=== PATIENT | female | born 1935 | race Caucasian/White ===

== ENCOUNTER 2017-03-07 14:37 | Inpatient (IN) | payer OTHER ==
[~2017-03-07] VITALS: Ht 154.9 cm; Wt 77.1 kg
--- NOTE | 2017-03-07 14:57 | NUR ---
PT BACK TO LOBBY. SPEAKING FULL CLEAR SENTENCES. NO DISTRESS.
--- NOTE | 2017-03-07 16:27 | NUR ---
PT IS A 81 YEAR OLD FEMALE, PRESENTS TO ED WITH SHORTNESS OF BREATH X3 DAYS. PT LUNG SOUNDS HAVE WHEEZE BILATERALLY. PT DENIES ANY N/V/D/C. PT HAS BILATERAL EXTREMITY PITTING EDEMA NOTED. PT SPEECH IS CLEAR AND APPROPRIATE. PT A/O X4, PT HOOKED TO FULL TREATING MACHINE OPERATOR. MSE PERFORMED BY DR SPENCER.
[2017-03-07 16:50] LABS: CALCIUM 8.6 mg/dL (8.5-10.1); CARBON DIOXIDE 33.9 mmol/L (21-32); CHLORIDE SERUM 97 mmol/L (98-107); CREATININE SERUM 1.6 mg/dL (0.6-1.0); GLUCOSE SERUM 108 mg/dL (74-106); POTASSIUM SERUM 3.2 mmol/L (3.5-5.1); SODIUM SERUM 139 mmol/L (136-145)
[2017-03-07 16:56] LABS: PLATELET COUNT 139 x10^3mcL (130-400)
[2017-03-07] MEDS ORDERED: LASIX40 MG PO (16:56)
[2017-03-07] MEDS ORDERED: TOPROL XL100 MG PO (16:56)
[2017-03-07] MEDS ORDERED: MASON NATURAL1000 IU PO (16:56)
[2017-03-07] MEDS ORDERED: COUMADIN2.5 MG PO (16:56)
[2017-03-07] MEDS ORDERED: LOSARTAN POTASS25 M1 PO (16:56)
[2017-03-07] MEDS ORDERED: XANAX0.25 MG PO (16:57)
[2017-03-07 16:59] LABS: BASOPHIL % 2.4 % (0-2); RED CELL DISTRIBUTION WIDTH 15.2 % (11.5-14.5)
[2017-03-07 17:01] LABS: CK-MB 0.5 ng/mL (0-3.6)
[2017-03-07 17:02] LABS: ALBUMIN 3.4 g/dL (3.4-5.0); ALKALINE PHOSPHATASE 65 U/L (46-116); ALT/SGPT 20 U/L (14-59); AST/SGOT 19 U/L (15-37); C REACTIVE PROTEIN 1.4 mg/dL (<=0.9); TOTAL PROTEIN, SERUM 6.6 g/dL (6.4-8.2)
--- NOTE | 2017-03-07 17:06 | NUR ---
SPO2 PRE TX 89%. RAN ABG AND REVIEWED WITH DR. SPENCER WHO STATED TO PLACE PT ON 2L VIA N/C PO2 53.5
[2017-03-07 17:13] LABS: T3 TOTAL 0.64 ng/mL
[2017-03-07 17:30] LABS: FREE T4 1.41 ng/dL (0.76-1.46); FREE THYROXINE INDEX 3.5 ug/dL (1.4-4.5); T4(THYROXINE) 8.7 ug/dL (4.7-13.3)
[2017-03-07 18:12] LABS: ERYTHROCYTE SED RATE 4 mm/hr (0-30)
[2017-03-07 19:24] LABS: MAGNESIUM 1.7 mg/dL (1.8-2.4)
[2017-03-07 19:25] LABS: CHOLESTEROL/HDL RATIO 2.6
--- NOTE | 2017-03-07 19:30 | NUR ---
REPORT CALLED TO TIA SORIA, SHE WILL ASSUME CARE PRIMARY RN POST TRASFNER.
[2017-03-07 19:50] LABS: UA SPECIFIC GRAVITY <=1.005 (1.005-1.035); microscopic required? YES; urine erythrocyte TRACE (NEGATIVE)
[2017-03-07 19:57] VITALS: BP 145/67
--- NOTE | 2017-03-07 20:01 | NUR ---
RECEIVED PT FROM ED VIA GREGORIO. ORIENTED PT TO ROOM AND SURROUNDINGS. IV NOTED TO RAC PATENT AND INTACT. TELE 25 PLACED ON PT READING AFIB. INSTRUCTED PT ON THE USE OF CALL LIGHT FOR ASSISTANCE. ENDORSED PT TO PRIMARY NURSE DUKE
--- NOTE | 2017-03-07 20:10 | NUR ---
REC'D REPORT WILL CONTINUE CARE.
[2017-03-07 20:15] LABS: AMPHETAMINE QUAL UR NONE DETECTED (NEG <=1000)
[2017-03-07 21:26] VITALS: BP 145/67
--- NOTE | 2017-03-08 03:12 | NUR ---
ROUNDS MADE, PT IS SLEEPING COMFORTABLY. NO DISTRESS NOTED. WILL CONT TO MONITOR.
[2017-03-08 05:49] VITALS: BP 138/96
--- NOTE | 2017-03-08 06:07 | NUR ---
PT SLEPT COMFORTABLY THROUGHOUT THE NIGHT. NO RESP DISTRESS NOTED. ALL NEEDS MET AND ATTENDED TO. IV ACCESS PATENT AND HEPLOCK. WILL ENDORSE ALL CARE TO ONCOMING NURSE.
[2017-03-08 06:42] LABS: CALCIUM 8.4 mg/dL (8.5-10.1); CHLORIDE SERUM 102 mmol/L (98-107); CREATININE SERUM 1.5 mg/dL (0.6-1.0); GLUCOSE SERUM 166 mg/dL (74-106); MAGNESIUM 2.3 mg/dL (1.8-2.4); POTASSIUM SERUM 4.2 mmol/L (3.5-5.1); SODIUM SERUM 141 mmol/L (136-145)
--- NOTE | 2017-03-08 07:10 | NUR ---
RESTING IN BED, AAOX3, ABLE TO VERBALIZE NEED WITH CLEAR SPEECH, ON OXYGEN VIA NC AT 2L/MIN, SYM CHEST EXPANSION, FINE CRACKLES NOTED, ON TELE #25 A-FIB ON MONITOR, DENIES HEART RELATED PAIN OR DISCOMFORT AT THIS TIME, BLE EDEMA +2, COUMADIN ORDER ON HOLD, CURRENT INR IS 4.8, REORIENTED TO ROOM AND CALL LIGHT WILL CONTINUE TO PROVIDE CARE.
[2017-03-08 08:13] LABS: BASOPHIL % 0.3 % (0-2)
[2017-03-08 08:29] LABS: PLATELET COUNT 124 x10^3mcL (130-400); RED CELL DISTRIBUTION WIDTH 16.2 % (11.5-14.5)
--- NOTE | 2017-03-08 08:53 | NUR ---
ROUNDS WITH DR PETERSON AND MEDICAL TEAM, UPDATED PT ON CURRENT POC.
--- NOTE | 2017-03-08 09:39 | NUR ---
ABLE TO TAKE ALL PO MEDS WITHOUT GI DISTRESS OR SWALLOW DELAY, CALL LIGHT WITHIN REACH, WILL CONTINUE TO PROVIDE CARE.
[2017-03-08 09:41] VITALS: BP 133/67
[2017-03-08] MEDS ORDERED: LEVAQUIN750 MG PO (12:02)
[2017-03-08] MEDS ORDERED: CLINDAMYCIN HC300 MG PO (12:03)
[2017-03-08] MEDS ORDERED: BD LACTINEX1.4 MG PO (12:03)
[2017-03-08] MEDS ORDERED: COUMADIN2 MG PO (12:04)
[2017-03-08 13:37] VITALS: BP 135/85
[2017-03-08 15:38] VITALS: BP 135/85
[2017-03-08 17:34] VITALS: BP 134/88
--- NOTE | 2017-03-08 18:34 | NUR ---
PATIENT DISCHARGED HOME, REVIEWED DISCHARGE INSTRUCTIONS WITH PATIENT, INCLUDING FOLLOW UP APPOINTMENT WITH PCP, PATIENT VERBALIZED UNDERSTANDING OF DISCHARGE INSTRUCTIONS. IV D/C'D, CATH TIP INTACT, NO BLEEDING OR PHLEBITIS NOTED, COVERED WITH BANDAID. TELE MONITOR REMOVED. PATIENT WILL BE ASSISTED DOWNSTAIRS VIA WHEELCHAIR BY BEAD FORMING MACHINE SET UP OPERATOR.
--- NOTE | 2017-03-08 18:37 | NUR ---
REVIEWED DISCHARGE INSTRUCTIONS WITH PATIENT AND DAUGHTER, INCLUDING FOLLOW UP APPOINTMENT WITH PCP, PATIENT AND DAUGHTER VERBALIZED UNDERSTANDING OF DISCHARGE INSTRUCTIONS. IV D/C'D, CATH TIP INTACT, NO BLEEDING OR PHLEBITIS NOTED, COVERED WITH BANDAID. TELE MONITOR REMOVED.
[2017-03-15 17:20] VITALS: Ht 154.9 cm; Wt 77.1 kg
== END 2017-03-08 18:38 | disposition home or self-care (01) | DRG 177 ==
LOC: ED 14:37 → DU 18:49
PROVIDERS: Specialist; ADMIT Family Medicine
DX: J69.0 Pneumonitis due to inhalation of food and vomit (principal); I50.43 Acute on chronic combined systolic (congestive) and diastolic (congestive) heart failure; N17.0 Acute kidney failure with tubular necrosis; J96.00 Acute respiratory failure, unspecified whether with hypoxia or hypercapnia; E44.1 Mild protein-calorie malnutrition; K80.20 Calculus of gallbladder without cholecystitis without obstruction; I48.91 Unspecified atrial fibrillation; E87.6 Hypokalemia; E83.42 Hypomagnesemia; K21.9 Gastro-esophageal reflux disease without esophagitis; E87.8 Other disorders of electrolyte and fluid balance, not elsewhere classified; E66.9 Obesity, unspecified; Z68.32 Body mass index [BMI] 32.0-32.9, adult; Z86.711 Personal history of pulmonary embolism; Z79.01 Long term (current) use of anticoagulants
CPT/HCPCS: 36600; 83880; 84439; 94150; J1940; J1956; J2930; J3475; J3490; J7040; J7613; J7620; J7644; Q0092; Q9967

== ENCOUNTER 2017-03-10 01:57 | Inpatient (IN) | payer OTHER ==
[2017-03-10] VITALS (7 sets, daily range): BP systolic 12–139; BP diastolic 71–93; Ht 160 cm; Wt 80.5 kg
[~2017-03-10] VITALS: Ht 160 cm; Wt 80.5 kg
[~2017-03-10 01:57] MED LIST: BD LACTINEX1.4 MG PO; CLINDAMYCIN HC300 MG PO; COUMADIN2 MG PO; COUMADIN2.5 MG PO; LASIX40 MG PO; LEVAQUIN750 MG PO; LOSARTAN POTASS25 M1 PO; MASON NATURAL1000 IU PO; TOPROL XL100 MG PO; XANAX0.25 MG PO
[2017-03-10 02:50] LABS: CALCIUM 8.5 mg/dL (8.5-10.1); CARBON DIOXIDE 35.7 mmol/L (21-32); CHLORIDE SERUM 100 mmol/L (98-107); CREATININE SERUM 1.5 mg/dL (0.6-1.0); GLUCOSE SERUM 110 mg/dL (74-106); POTASSIUM SERUM 3.6 mmol/L (3.5-5.1); SODIUM SERUM 140 mmol/L (136-145)
[2017-03-10 02:55] LABS: ALKALINE PHOSPHATASE 60 U/L (46-116); ALT/SGPT 19 U/L (14-59); AST/SGOT 19 U/L (15-37); BILIRUBIN TOTAL 1.12 mg/dL (0.20-1.00)
[2017-03-10 02:58] LABS: ALBUMIN 3.1 g/dL (3.4-5.0)
[2017-03-10 03:24] LABS: BASOPHIL % 0.2 % (0-2); PLATELET COUNT 152 x10^3mcL (130-400)
[2017-03-10 03:28] LABS: RED CELL DISTRIBUTION WIDTH 16.5 % (11.5-14.5)
[2017-03-10 11:48] LABS: MAGNESIUM 2.3 mg/dL (1.8-2.4); PHOSPHOROUS 4.2 mg/dL (2.5-4.9)
[2017-03-10 11:53] LABS: CHOLESTEROL/HDL RATIO 2.7
[2017-03-10 12:16] LABS: T3 TOTAL 0.44 ng/mL
[2017-03-10 13:00] LABS: FREE T4 1.21 ng/dL (0.76-1.46); FREE THYROXINE INDEX 2.4 ug/dL (1.4-4.5)
[2017-03-10] MEDS ORDERED: METOPROLOL TAR100 MG PO (17:08)
[2017-03-11 06:05] VITALS: BP 108/84
[2017-03-11 08:20] LABS: BASOPHIL % 0.1 % (0-2); PLATELET COUNT 143 x10^3mcL (130-400)
[2017-03-11 08:29] LABS: CALCIUM 8.7 mg/dL (8.5-10.1); CARBON DIOXIDE 34.7 mmol/L (21-32); CHLORIDE SERUM 103 mmol/L (98-107); CREATININE SERUM 1.4 mg/dL (0.6-1.0); GLUCOSE SERUM 105 mg/dL (74-106); POTASSIUM SERUM 4.4 mmol/L (3.5-5.1); SODIUM SERUM 143 mmol/L (136-145)
[2017-03-11 08:41] LABS: RED CELL DISTRIBUTION WIDTH 16.7 % (11.5-14.5)
[2017-03-11 09:08] VITALS: BP 113/71
[2017-03-11 11:55] VITALS: BP 111/67
[2017-03-11 16:03] VITALS: BP 107/67
[2017-03-11 21:24] VITALS: BP 122/74
[2017-03-12 06:41] VITALS: BP 114/89
[2017-03-12 09:53] VITALS: BP 110/71
[2017-03-12 10:12] LABS: BASOPHIL % 0.1 % (0-2); PLATELET COUNT 152 x10^3mcL (130-400)
[2017-03-12 10:23] LABS: CALCIUM 7.9 mg/dL (8.5-10.1); CARBON DIOXIDE 37.8 mmol/L (21-32); CHLORIDE SERUM 102 mmol/L (98-107); CREATININE SERUM 1.4 mg/dL (0.6-1.0); GLUCOSE SERUM 91 mg/dL (74-106); POTASSIUM SERUM 3.9 mmol/L (3.5-5.1); RED CELL DISTRIBUTION WIDTH 16.8 % (11.5-14.5); SODIUM SERUM 144 mmol/L (136-145)
[2017-03-12 17:05] VITALS: BP 131/71
[2017-03-12 21:39] VITALS: BP 120/75
[2017-03-13 05:26] VITALS: BP 118/78
[2017-03-13 07:33] LABS: BASOPHIL % 0.3 % (0-2); PLATELET COUNT 143 x10^3mcL (130-400)
[2017-03-13 07:37] LABS: RED CELL DISTRIBUTION WIDTH 16.6 % (11.5-14.5)
[2017-03-13 07:46] LABS: CALCIUM 8.1 mg/dL (8.5-10.1); CARBON DIOXIDE 36.8 mmol/L (21-32); CHLORIDE SERUM 102 mmol/L (98-107); CREATININE SERUM 1.4 mg/dL (0.6-1.0); GLUCOSE SERUM 83 mg/dL (74-106); SODIUM SERUM 144 mmol/L (136-145)
[2017-03-13 09:09] VITALS: BP 98/61
[2017-03-13] MEDS ORDERED: L40 PO (14:17)
[2017-03-13 14:37] VITALS: BP 98/61
[2017-03-13 17:37] VITALS: BP 118/73
[2017-03-13 21:31] VITALS: BP 111/63
[2017-03-14 06:13] VITALS: BP 113/80
[2017-03-14 09:14] VITALS: BP 126/78
[2017-03-14] MEDS ORDERED: COU5 PO (17:30)
[2017-03-14 17:44] VITALS: BP 123/85
[2017-03-14 20:20] VITALS: BP 128/87
[2017-03-14 20:25] VITALS: BP 130/94
[2017-03-14 21:11] VITALS: BP 132/86
[2017-03-15 06:11] VITALS: BP 120/64
[2017-03-15 07:26] LABS: CALCIUM 8.6 mg/dL (8.5-10.1); CARBON DIOXIDE 38.1 mmol/L (21-32); CHLORIDE SERUM 100 mmol/L (98-107); CREATININE SERUM 1.3 mg/dL (0.6-1.0); GLUCOSE SERUM 141 mg/dL (74-106); POTASSIUM SERUM 4.4 mmol/L (3.5-5.1); SODIUM SERUM 140 mmol/L (136-145)
[2017-03-15 07:34] LABS: PLATELET COUNT 167 x10^3mcL (130-400)
[2017-03-15 07:40] LABS: RED CELL DISTRIBUTION WIDTH 15.9 % (11.5-14.5)
[2017-03-15 07:41] LABS: BASOPHIL % 0 % (0-2)
[2017-03-15 09:00] VITALS: BP 127/93
[2017-03-15 10:20] VITALS: BP 127/93
[2017-03-15] MEDS ORDERED: MEDDP PO (11:50)
[2017-03-15] MEDS ORDERED: LEVAQUIN750 MG PO (11:52)
[2017-03-15 13:00] VITALS: BP 130/85
== END 2017-03-15 16:00 | disposition home health service (06) | DRG 177 ==
LOC: ED 01:57 → DU 05:31 → MU 05:31 → DU 06:23 → MU 03-11 06:45
PROVIDERS: Emergency Medicine; Family Medicine; Family Medicine Sports Medicine
DX: J69.0 Pneumonitis due to inhalation of food and vomit (principal); N17.0 Acute kidney failure with tubular necrosis; I50.43 Acute on chronic combined systolic (congestive) and diastolic (congestive) heart failure; J96.00 Acute respiratory failure, unspecified whether with hypoxia or hypercapnia; E44.0 Moderate protein-calorie malnutrition; J44.9 Chronic obstructive pulmonary disease, unspecified; I48.91 Unspecified atrial fibrillation; K80.20 Calculus of gallbladder without cholecystitis without obstruction; Z68.34 Body mass index [BMI] 34.0-34.9, adult; Z86.711 Personal history of pulmonary embolism; Z79.01 Long term (current) use of anticoagulants
CPT/HCPCS: 36600; 83880; 84439; 94150; 97110-GP; 97116-GP; 97530-GP; J0456; J1956; J2920; J2930; J3475; J3490; J7030; J7050; J7613; J7620; J7633; J7644; Q0092

== ENCOUNTER 2017-05-31 08:58 | Observation (INO) | payer OTHER ==
[~2017-05-31] VITALS: Ht 162.6 cm; Wt 85.4 kg
[~2017-05-31 08:58] MED LIST changes: +COU5 PO; +L40 PO; +MEDDP PO; +METOPROLOL TAR100 MG PO
[2017-05-31 08:59] VITALS: Ht 162.6 cm; Wt 85.4 kg
[2017-05-31 10:25] LABS: BASOPHIL % 0.5 % (0-2); PLATELET COUNT 136 x10^3mcL (130-400)
[2017-05-31 10:27] LABS: RED CELL DISTRIBUTION WIDTH 16.8 % (11.5-14.5)
[2017-05-31 10:38] LABS: CALCIUM 9.2 mg/dL (8.5-10.1); CARBON DIOXIDE 37.7 mmol/L (21-32); CHLORIDE SERUM 101 mmol/L (98-107); CREATININE SERUM 1.2 mg/dL (0.6-1.0); GLUCOSE SERUM 100 mg/dL (74-106); POTASSIUM SERUM 3.3 mmol/L (3.5-5.1); SODIUM SERUM 144 mmol/L (136-145)
[2017-05-31 10:43] LABS: ALBUMIN 3.5 g/dL (3.4-5.0); ALKALINE PHOSPHATASE 66 U/L (46-116); ALT/SGPT 15 U/L (14-59); AMYLASE 39 U/L (25-115); AST/SGOT 17 U/L (15-37); BILIRUBIN TOTAL 1.3 mg/dL (0.20-1.00); LIPASE 82 IU/L (73-393); TOTAL PROTEIN, SERUM 6.3 g/dL (6.4-8.2)
[2017-05-31 11:12] LABS: UA SPECIFIC GRAVITY 1.025 (1.005-1.035); microscopic required? YES; urine erythrocyte NEGATIVE (NEGATIVE)
[2017-05-31] MEDS ORDERED: COUMADIN2 MG PO (14:02)
[2017-05-31 15:06] LABS: T3 TOTAL 1.01 ng/mL
[2017-05-31 15:42] LABS: MAGNESIUM 1.9 mg/dL (1.8-2.4); PHOSPHOROUS 4.5 mg/dL (2.5-4.9)
[2017-05-31 15:52] LABS: FREE T4 1.22 ng/dL (0.76-1.46); FREE THYROXINE INDEX 2.6 ug/dL (1.4-4.5); T4(THYROXINE) 7.1 ug/dL (4.7-13.3)
[2017-05-31 17:53] VITALS: BP 129/85
[2017-05-31 20:00] VITALS: BP 136/91
[2017-06-01] VITALS: BP 115/76
[2017-06-01 04:00] VITALS: BP 114/76
[2017-06-01 05:49] LABS: CALCIUM 8.7 mg/dL (8.5-10.1); CHLORIDE SERUM 103 mmol/L (98-107); CREATININE SERUM 1.3 mg/dL (0.6-1.0); GLUCOSE SERUM 120 mg/dL (74-106); POTASSIUM SERUM 4.2 mmol/L (3.5-5.1); SODIUM SERUM 145 mmol/L (136-145)
[2017-06-01 05:58] LABS: PLATELET COUNT 137 x10^3mcL (130-400)
[2017-06-01 06:00] LABS: BASOPHIL % 0 % (0-2); RED CELL DISTRIBUTION WIDTH 16.7 % (11.5-14.5)
[2017-06-01 07:47] VITALS: BP 127/70
[2017-06-01 11:26] VITALS: BP 108/67
[2017-06-01 16:54] VITALS: BP 118/69
[2017-06-01 20:52] VITALS: BP 130/68
[2017-06-02 05:38] VITALS: BP 121/72
[2017-06-02 07:35] LABS: BASOPHIL % 0.4 % (0-2); CALCIUM 8.3 mg/dL (8.5-10.1); CARBON DIOXIDE 34.3 mmol/L (21-32); CHLORIDE SERUM 109 mmol/L (98-107); CREATININE SERUM 1.2 mg/dL (0.6-1.0); GLUCOSE SERUM 94 mg/dL (74-106); MAGNESIUM 1.7 mg/dL (1.8-2.4); PHOSPHOROUS 3.2 mg/dL (2.5-4.9); PLATELET COUNT 131 x10^3mcL (130-400); POTASSIUM SERUM 3.6 mmol/L (3.5-5.1); RED CELL DISTRIBUTION WIDTH 17.3 % (11.5-14.5); SODIUM SERUM 151 mmol/L (136-145)
[2017-06-02 10:01] VITALS: BP 108/73
[2017-06-02 10:52] VITALS: BP 108/73
[2017-06-02] MEDS ORDERED: DILTIAZEM30 M1 PO (12:34)
[2017-06-02] MEDS ORDERED: L20 PO (12:35)
[2017-06-02 13:53] VITALS: BP 107/50
== END 2017-06-02 18:04 | disposition home or self-care (01) | DRG 353 ==
LOC: ED 08:58 → DU 12:15 → IC 14:12 → DU 06-01 15:10
PROVIDERS: Emergency Medicine; Family Medicine; Internal Medicine Cardiovascular Disease; Student in an Organized Health Care Education/Training Program; Surgery
PROC: 0WUF0JZ Supplement Abdominal Wall with Synthetic Substitute, Open Approach (ICD-10-PCS; principal; 2017-05-31 13:30)
DX: K42.0 Umbilical hernia with obstruction, without gangrene (principal); I50.43 Acute on chronic combined systolic (congestive) and diastolic (congestive) heart failure; N17.0 Acute kidney failure with tubular necrosis; E87.0 Hyperosmolality and hypernatremia; I11.0 Hypertensive heart disease with heart failure; I48.2 Chronic atrial fibrillation; E83.42 Hypomagnesemia; N28.1 Cyst of kidney, acquired; K80.20 Calculus of gallbladder without cholecystitis without obstruction; E66.3 Overweight; Z68.32 Body mass index [BMI] 32.0-32.9, adult; Z79.01 Long term (current) use of anticoagulants; Z99.81 Dependence on supplemental oxygen; Z86.711 Personal history of pulmonary embolism
CPT/HCPCS: 83880; 84439; 94150; 97110-GP; C1781; G0378; J0330; J1644; J2250; J2270; J2405; J2704; J2710; J3010; J3490; J7030; J7120; Q0092; Q0162

== ENCOUNTER 2017-07-08 11:55 | Inpatient (IN) | payer OTHER ==
[~2017-07-08] VITALS: Ht 157.5 cm; Wt 87.0 kg
[~2017-07-08 11:55] MED LIST changes: +DILTIAZEM30 M1 PO; +L20 PO
[2017-07-08 12:37] LABS: BASOPHIL % 0.4 % (0-2)
[2017-07-08 12:38] LABS: PLATELET COUNT 120 x10^3mcL (130-400); RED CELL DISTRIBUTION WIDTH 15.6 % (11.5-14.5)
[2017-07-08 12:59] LABS: ALBUMIN 3.4 g/dL (3.4-5.0); ALKALINE PHOSPHATASE 78 U/L (46-116); ALT/SGPT 17 U/L (14-59); AST/SGOT 15 U/L (15-37); BILIRUBIN TOTAL 1.2 mg/dL (0.20-1.00); CALCIUM 8.5 mg/dL (8.5-10.1); CHLORIDE SERUM 95 mmol/L (98-107); CREATININE SERUM 1.1 mg/dL (0.6-1.0); GLUCOSE SERUM 117 mg/dL (74-106); POTASSIUM SERUM 3.6 mmol/L (3.5-5.1); SODIUM SERUM 139 mmol/L (136-145); TOTAL PROTEIN, SERUM 6.4 g/dL (6.4-8.2)
[2017-07-08 13:04] LABS: CK-MB < 0.5 ng/mL (0-3.6); CREATINE KINASE 24 U/L (26-192)
[2017-07-08 13:05] LABS: CARBON DIOXIDE 42.9 mmol/L (21-32)
[2017-07-08 15:31] LABS: CHOLESTEROL/HDL RATIO 2.3; MAGNESIUM 2.1 mg/dL (1.8-2.4); PHOSPHOROUS 4.5 mg/dL (2.5-4.9)
[2017-07-08 15:35] LABS: T3 TOTAL 0.77 ng/mL
[2017-07-08 15:41] LABS: FREE T4 1.01 ng/dL (0.76-1.46); T4(THYROXINE) 5.8 ug/dL (4.7-13.3)
[2017-07-08 16:02] VITALS: BP 94/57
[2017-07-08 16:17] LABS: UA SPECIFIC GRAVITY 1.025 (1.005-1.035); microscopic required? YES; urine erythrocyte NEGATIVE (NEGATIVE)
[2017-07-08 16:25] VITALS: BP 94/57
[2017-07-08 16:26] LABS: AMPHETAMINE QUAL UR NONE DETECTED (NEG <=1000)
[2017-07-08 20:48] VITALS: BP 103/60
[2017-07-09] VITALS (16 sets, daily range): BP systolic 73–193; BP diastolic 42–126
[2017-07-09 05:43] LABS: BASOPHIL % 0 % (0-2); PLATELET COUNT 97 x10^3mcL (130-400); RED CELL DISTRIBUTION WIDTH 15.4 % (11.5-14.5)
[2017-07-09 05:54] LABS: CHLORIDE SERUM 97 mmol/L (98-107); CREATININE SERUM 1.2 mg/dL (0.6-1.0); GLUCOSE SERUM 117 mg/dL (74-106); MAGNESIUM 1.7 mg/dL (1.8-2.4); PHOSPHOROUS 2.8 mg/dL (2.5-4.9); SODIUM SERUM 141 mmol/L (136-145)
[2017-07-09 05:55] LABS: CARBON DIOXIDE 43.1 mmol/L (21-32); POTASSIUM SERUM 2.9 mmol/L (3.5-5.1)
[2017-07-09 21:51] LABS: CARBON DIOXIDE 34.3 mmol/L (21-32); CHLORIDE SERUM 100 mmol/L (98-107); CREATININE SERUM 1.4 mg/dL (0.6-1.0); GLUCOSE SERUM 166 mg/dL (74-106); POTASSIUM SERUM 3.1 mmol/L (3.5-5.1); SODIUM SERUM 139 mmol/L (136-145)
[2017-07-10] VITALS (19 sets, daily range): BP systolic 91–116; BP diastolic 55–87
[2017-07-10 05:53] LABS: BASOPHIL % 0 % (0-2); PLATELET COUNT 100 x10^3mcL (130-400); RED CELL DISTRIBUTION WIDTH 15.4 % (11.5-14.5)
[2017-07-10 06:07] LABS: CALCIUM 8.3 mg/dL (8.5-10.1); CARBON DIOXIDE 36.3 mmol/L (21-32); CHLORIDE SERUM 100 mmol/L (98-107); CREATININE SERUM 1.4 mg/dL (0.6-1.0); GLUCOSE SERUM 156 mg/dL (74-106); MAGNESIUM 2.5 mg/dL (1.8-2.4); PHOSPHOROUS 2.7 mg/dL (2.5-4.9); POTASSIUM SERUM 3.4 mmol/L (3.5-5.1); SODIUM SERUM 141 mmol/L (136-145)
[2017-07-10 07:32] LABS: BILIRUBIN DIRECT 0.32 mg/dL (0.0-0.2); BILIRUBIN TOTAL 0.95 mg/dL (0.20-1.00)
[2017-07-10 08:14] LABS: ALBUMIN 2.6 g/dL (3.4-5.0); TOTAL PROTEIN, SERUM 5.4 g/dL (6.4-8.2)
[2017-07-11] VITALS (12 sets, daily range): BP systolic 93–127; BP diastolic 49–89
[2017-07-11 05:27] LABS: BASOPHIL % 0 % (0-2); PLATELET COUNT 119 x10^3mcL (130-400); RED CELL DISTRIBUTION WIDTH 15.6 % (11.5-14.5)
[2017-07-11 05:37] LABS: CALCIUM 7.9 mg/dL (8.5-10.1); CARBON DIOXIDE 33.2 mmol/L (21-32); CHLORIDE SERUM 106 mmol/L (98-107); CREATININE SERUM 1.3 mg/dL (0.6-1.0); GLUCOSE SERUM 165 mg/dL (74-106); MAGNESIUM 2.3 mg/dL (1.8-2.4); SODIUM SERUM 144 mmol/L (136-145)
[2017-07-12 00:11] VITALS: BP 129/72
[2017-07-12 03:51] VITALS: BP 119/77
[2017-07-12 05:05] LABS: BASOPHIL % 0.1 % (0-2); PLATELET COUNT 134 x10^3mcL (130-400)
[2017-07-12 05:11] LABS: CALCIUM 7.9 mg/dL (8.5-10.1); CHLORIDE SERUM 107 mmol/L (98-107); CREATININE SERUM 1.2 mg/dL (0.6-1.0); GLUCOSE SERUM 94 mg/dL (74-106); MAGNESIUM 2.2 mg/dL (1.8-2.4); PHOSPHOROUS 4.2 mg/dL (2.5-4.9); POTASSIUM SERUM 3.6 mmol/L (3.5-5.1); SODIUM SERUM 147 mmol/L (136-145)
[2017-07-12 05:15] LABS: RED CELL DISTRIBUTION WIDTH 15.8 % (11.5-14.5)
[2017-07-12 07:45] VITALS: BP 119/83
[2017-07-12 11:34] VITALS: BP 114/70
[2017-07-12 13:46] LABS: microscopic required? YES; urine erythrocyte 3+ (NEGATIVE)
[2017-07-12 15:35] VITALS: BP 112/66
[2017-07-12 21:36] VITALS: BP 115/65
[2017-07-13 05:33] VITALS: BP 146/92
[2017-07-13 08:42] LABS: CALCIUM 8.1 mg/dL (8.5-10.1); CHLORIDE SERUM 105 mmol/L (98-107); CREATININE SERUM 1.1 mg/dL (0.6-1.0); GLUCOSE SERUM 86 mg/dL (74-106); MAGNESIUM 2.1 mg/dL (1.8-2.4); PHOSPHOROUS 4.1 mg/dL (2.5-4.9); POTASSIUM SERUM 3.5 mmol/L (3.5-5.1); SODIUM SERUM 146 mmol/L (136-145)
[2017-07-13 08:44] LABS: CARBON DIOXIDE 40.9 mmol/L (21-32)
[2017-07-13 08:45] LABS: BASOPHIL % 0.1 % (0-2); PLATELET COUNT 131 x10^3mcL (130-400); RED CELL DISTRIBUTION WIDTH 15.7 % (11.5-14.5)
[2017-07-13 09:36] VITALS: BP 148/86
[2017-07-13 11:09] VITALS: Ht 157.5 cm; Wt 87.0 kg
[2017-07-13 13:29] VITALS: BP 121/80
[2017-07-13 16:53] VITALS: BP 137/77
[2017-07-13 19:20] VITALS: BP 140/71
[2017-07-14 05:46] VITALS: BP 137/76
[2017-07-14 07:46] LABS: BASOPHIL % 0.4 % (0-2); PLATELET COUNT 137 x10^3mcL (130-400)
[2017-07-14 07:48] LABS: CARBON DIOXIDE 39.5 mmol/L (21-32); CHLORIDE SERUM 103 mmol/L (98-107); CREATININE SERUM 0.9 mg/dL (0.6-1.0); GLUCOSE SERUM 87 mg/dL (74-106); MAGNESIUM 2.1 mg/dL (1.8-2.4); PHOSPHOROUS 3.7 mg/dL (2.5-4.9); POTASSIUM SERUM 3.6 mmol/L (3.5-5.1); SODIUM SERUM 145 mmol/L (136-145)
[2017-07-14 08:14] LABS: RED CELL DISTRIBUTION WIDTH 15.5 % (11.5-14.5)
[2017-07-14 09:40] VITALS: BP 134/80
[2017-07-14 14:59] VITALS: BP 139/71
[2017-07-14 17:54] VITALS: BP 131/63
[2017-07-14 20:35] VITALS: BP 121/62
[2017-07-15 05:46] VITALS: BP 127/70
[2017-07-15 05:57] LABS: BASOPHIL % 0.4 % (0-2); PLATELET COUNT 151 x10^3mcL (130-400)
[2017-07-15 06:04] LABS: CALCIUM 7.9 mg/dL (8.5-10.1); CHLORIDE SERUM 104 mmol/L (98-107); CREATININE SERUM 1.1 mg/dL (0.6-1.0); GLUCOSE SERUM 96 mg/dL (74-106); POTASSIUM SERUM 3.7 mmol/L (3.5-5.1); SODIUM SERUM 146 mmol/L (136-145)
[2017-07-15 06:48] LABS: RED CELL DISTRIBUTION WIDTH 15.4 % (11.5-14.5)
[2017-07-15 08:56] VITALS: BP 141/70
[2017-07-15] MEDS ORDERED: CARCD180 PO (11:25)
[2017-07-15] MEDS ORDERED: L40 PO (11:25)
[2017-07-15] MEDS ORDERED: METOPROLOL TART25 M1 NG (11:26)
[2017-07-15] MEDS ORDERED: VENTOLIN H0.09 MG/A1 INH (11:27)
[2017-07-15] MEDS ORDERED: LEVAQUIN750 MG PO (11:27)
[2017-07-15] MEDS ORDERED: BD LACTINEX1.4 MG PO (11:27)
[2017-07-15] MEDS ORDERED: CLINDAMYCIN HC300 MG PO (11:27)
[2017-07-15 13:15] VITALS: BP 141/70
[2017-07-15 13:20] VITALS: BP 136/91
[2017-07-15 17:00] VITALS: BP 121/86
== END 2017-07-15 18:40 | disposition home health service (06) | DRG 208 ==
LOC: ED 11:55 → IC 14:24 → DU 14:24 → IC 07-09 01:45 → DU 07-12 17:13
PROVIDERS: Emergency Medicine; Family Medicine
PROC: 0BH17EZ Insertion of Endotracheal Airway into Trachea, Via Natural or Artificial Opening (ICD-10-PCS; principal; 2017-07-09)
PROC: 5A1945Z Respiratory Ventilation, 24-96 Consecutive Hours (ICD-10-PCS; 2017-07-09)
PROC: 02HV33Z Insertion of Infusion Device into Superior Vena Cava, Percutaneous Approach (ICD-10-PCS; 2017-07-09)
PROC: B548ZZA Ultrasonography of Superior Vena Cava, Guidance (ICD-10-PCS; 2017-07-09)
DX: J69.0 Pneumonitis due to inhalation of food and vomit (principal); J96.21 Acute and chronic respiratory failure with hypoxia; I50.43 Acute on chronic combined systolic (congestive) and diastolic (congestive) heart failure; N17.0 Acute kidney failure with tubular necrosis; E43 Unspecified severe protein-calorie malnutrition; J96.22 Acute and chronic respiratory failure with hypercapnia; J44.1 Chronic obstructive pulmonary disease with (acute) exacerbation; D68.32 Hemorrhagic disorder due to extrinsic circulating anticoagulants; I42.0 Dilated cardiomyopathy; N17.9 Acute kidney failure, unspecified; I13.0 Hypertensive heart and chronic kidney disease with heart failure and stage 1 through stage 4 chronic kidney disease, or unspecified chronic kidney disease; T45.515A Adverse effect of anticoagulants, initial encounter; F41.9 Anxiety disorder, unspecified; I48.91 Unspecified atrial fibrillation; D69.6 Thrombocytopenia, unspecified; E87.6 Hypokalemia; N18.9 Chronic kidney disease, unspecified; E83.42 Hypomagnesemia; Z88.0 Allergy status to penicillin; Z88.5 Allergy status to narcotic agent; Z79.899 Other long term (current) drug therapy; Z82.49 Family history of ischemic heart disease and other diseases of the circulatory system; Z86.711 Personal history of pulmonary embolism; Y92.89 Other specified places as the place of occurrence of the external cause; Z68.36 Body mass index [BMI] 36.0-36.9, adult
CPT/HCPCS: 36556; 36600; 82962; 83880; 84439; 92526-GN; 92610-GN; 94150; 97110-GP; 97116-GP; 97530-GP; A4628; C9113; J0330; J1160; J1642; J1885; J1940; J1956; J2060; J2250; J2704; J2920; J2930; J3475; J3480; J3490; J7030; J7040; J7613; J7620; J7626; J7644; Q0092; Q9967

== ENCOUNTER 2017-10-10 17:34 | Inpatient (IN) | payer OTHER ==
[~2017-10-10] VITALS: Ht 157.5 cm; Wt 82.2 kg
[~2017-10-10 17:34] MED LIST changes: +CARCD180 PO; +METOPROLOL TART25 M1 NG; +VENTOLIN H0.09 MG/A1 INH
[2017-10-10 18:28] VITALS: Ht 157.5 cm; Wt 82.2 kg
[2017-10-10 19:48] LABS: BASOPHIL % 0.3 % (0-2); PLATELET COUNT 139 x10^3mcL (130-400)
[2017-10-10 19:50] LABS: RED CELL DISTRIBUTION WIDTH 15.1 % (11.5-14.5)
[2017-10-10 19:57] LABS: CALCIUM 8.9 mg/dL (8.5-10.1); CHLORIDE SERUM 100 mmol/L (98-107); CREATININE SERUM 1.1 mg/dL (0.6-1.0); GLUCOSE SERUM 87 mg/dL (74-106); POTASSIUM SERUM 3.7 mmol/L (3.5-5.1); SODIUM SERUM 139 mmol/L (136-145)
[2017-10-10 20:01] LABS: ALBUMIN 3.9 g/dL (3.4-5.0); ALKALINE PHOSPHATASE 93 U/L (46-116); ALT/SGPT 25 U/L (14-59); AST/SGOT 25 U/L (15-37); BILIRUBIN TOTAL 1.13 mg/dL (0.20-1.00); LIPASE 165 IU/L (73-393); TOTAL PROTEIN, SERUM 7.2 g/dL (6.4-8.2)
[2017-10-10 21:12] LABS: microscopic required? YES; urine erythrocyte 1+ (NEGATIVE)
[2017-10-11] MEDS ORDERED: METOPROLOL SUC200 M2 PO (01:59)
[2017-10-11] MEDS ORDERED: COUMADIN4 MG PO (02:00)
[2017-10-11] MEDS ORDERED: XANAX0.25 MG PO (02:01)
[2017-10-11] MEDS ORDERED: LASIX40 MG PO (02:02)
[2017-10-11] MEDS ORDERED: DILTIAZEM HCL180 MG PO (02:02)
[2017-10-11 02:35] VITALS: BP 133/84
[2017-10-11 09:22] VITALS: BP 108/61
[2017-10-11 17:03] VITALS: BP 142/89
[2017-10-11 19:30] VITALS: BP 142/82
[2017-10-11 22:16] VITALS: BP 145/96
[2017-10-12 05:37] VITALS: BP 148/82
[2017-10-12 05:59] LABS: BASOPHIL % 0.2 % (0-2)
[2017-10-12 06:01] LABS: ALKALINE PHOSPHATASE 59 U/L (46-116); ALT/SGPT 18 U/L (14-59); AST/SGOT 24 U/L (15-37); BILIRUBIN TOTAL 0.88 mg/dL (0.20-1.00); CALCIUM 8.1 mg/dL (8.5-10.1); CARBON DIOXIDE 32.7 mmol/L (21-32); CHLORIDE SERUM 102 mmol/L (98-107); CREATININE SERUM 1.2 mg/dL (0.6-1.0); GLUCOSE SERUM 109 mg/dL (74-106); MAGNESIUM 1.8 mg/dL (1.8-2.4); PHOSPHOROUS 2.9 mg/dL (2.5-4.9); POTASSIUM SERUM 3.1 mmol/L (3.5-5.1); SODIUM SERUM 130 mmol/L (136-145)
[2017-10-12 06:02] LABS: ALBUMIN 2.6 g/dL (3.4-5.0); TOTAL PROTEIN, SERUM 5.2 g/dL (6.4-8.2)
[2017-10-12 06:14] LABS: PLATELET COUNT 84 x10^3mcL (130-400); RED CELL DISTRIBUTION WIDTH 15.1 % (11.5-14.5)
[2017-10-12 09:11] VITALS: BP 126/67
[2017-10-12 17:00] VITALS: BP 130/85
[2017-10-12 20:14] VITALS: BP 132/71
[2017-10-13 05:53] VITALS: BP 124/71
[2017-10-13 06:30] LABS: CALCIUM 7.6 mg/dL (8.5-10.1); CARBON DIOXIDE 32.3 mmol/L (21-32); CHLORIDE SERUM 108 mmol/L (98-107); GLUCOSE SERUM 96 mg/dL (74-106); POTASSIUM SERUM 3.6 mmol/L (3.5-5.1); SODIUM SERUM 143 mmol/L (136-145)
[2017-10-13 06:52] LABS: BASOPHIL % 0.3 % (0-2)
[2017-10-13 06:53] LABS: PLATELET COUNT 88 x10^3mcL (130-400); RED CELL DISTRIBUTION WIDTH 15.7 % (11.5-14.5)
[2017-10-13 09:27] VITALS: BP 116/76
[2017-10-13 16:04] VITALS: BP 121/78
[2017-10-13 21:13] VITALS: BP 134/85
[2017-10-14 05:41] VITALS: BP 143/89
[2017-10-14 06:40] LABS: CALCIUM 8.4 mg/dL (8.5-10.1); CHLORIDE SERUM 106 mmol/L (98-107); GLUCOSE SERUM 86 mg/dL (74-106); POTASSIUM SERUM 3.9 mmol/L (3.5-5.1); SODIUM SERUM 144 mmol/L (136-145)
[2017-10-14 06:51] LABS: BASOPHIL % 0.7 % (0-2)
[2017-10-14 06:56] LABS: PLATELET COUNT 107 x10^3mcL (130-400); RED CELL DISTRIBUTION WIDTH 15.5 % (11.5-14.5)
[2017-10-14 09:20] VITALS: BP 127/71
[2017-10-14 11:53] VITALS: BP 127/71
[2017-10-14 18:08] VITALS: BP 145/93
[2017-10-14 20:46] VITALS: BP 140/85
[2017-10-15 06:17] VITALS: BP 141/83
[2017-10-15 06:32] LABS: BASOPHIL % 0.7 % (0-2)
[2017-10-15 06:59] LABS: PLATELET COUNT 112 x10^3mcL (130-400)
[2017-10-15 07:10] LABS: CALCIUM 7.7 mg/dL (8.5-10.1); CARBON DIOXIDE 37.4 mmol/L (21-32); CHLORIDE SERUM 106 mmol/L (98-107); CREATININE SERUM 0.9 mg/dL (0.6-1.0); GLUCOSE SERUM 75 mg/dL (74-106); POTASSIUM SERUM 4.5 mmol/L (3.5-5.1); SODIUM SERUM 144 mmol/L (136-145)
[2017-10-15 09:01] VITALS: BP 139/90
[2017-10-15 17:40] VITALS: BP 133/80
[2017-10-15 21:34] VITALS: BP 141/80
[2017-10-16 05:48] VITALS: BP 138/85
[2017-10-16 05:58] LABS: BASOPHIL % 0.6 % (0-2); PLATELET COUNT 130 x10^3mcL (130-400)
[2017-10-16 06:25] LABS: CALCIUM 8.5 mg/dL (8.5-10.1); CARBON DIOXIDE 35.8 mmol/L (21-32); CHLORIDE SERUM 105 mmol/L (98-107); CREATININE SERUM 1.1 mg/dL (0.6-1.0); GLUCOSE SERUM 80 mg/dL (74-106); POTASSIUM SERUM 4.4 mmol/L (3.5-5.1); SODIUM SERUM 145 mmol/L (136-145)
[2017-10-16 06:51] LABS: RED CELL DISTRIBUTION WIDTH 14.8 % (11.5-14.5)
[2017-10-16 10:00] VITALS: BP 130/82
[2017-10-16 12:28] VITALS: BP 116/83
[2017-10-16 17:11] VITALS: BP 136/88
[2017-10-16 20:42] VITALS: BP 139/77
[2017-10-17 06:19] VITALS: BP 134/80
[2017-10-17 09:15] VITALS: BP 130/72
[2017-10-17] MEDS ORDERED: VANCOMYCIN PER PHARM MC (09:56)
[2017-10-17 13:20] VITALS: BP 130/72
[2017-10-17 18:55] VITALS: BP 129/73
== END 2017-10-17 19:56 | disposition home health service (06) | DRG 871 ==
LOC: ED 17:34 → MU 10-11 01:45
PROVIDERS: Emergency Medicine; Internal Medicine Pulmonary Disease
DX: A41.9 Sepsis, unspecified organism (principal); G93.40 Encephalopathy, unspecified; L03.116 Cellulitis of left lower limb; I50.40 Unspecified combined systolic (congestive) and diastolic (congestive) heart failure; J44.9 Chronic obstructive pulmonary disease, unspecified; B95.4 Other streptococcus as the cause of diseases classified elsewhere; F41.9 Anxiety disorder, unspecified; I48.91 Unspecified atrial fibrillation; Z68.28 Body mass index [BMI] 28.0-28.9, adult; Z99.81 Dependence on supplemental oxygen; Z87.891 Personal history of nicotine dependence; Z86.711 Personal history of pulmonary embolism; Z79.01 Long term (current) use of anticoagulants; Z86.718 Personal history of other venous thrombosis and embolism
CPT/HCPCS: 83880; 97110-GP; 97116-GP; 97530-GP; 97535-GP; J2060; J3370; J3490; J7030; J7040; J7050; J7620

== ENCOUNTER 2017-11-02 19:17 | Inpatient (IN) | payer OTHER ==
[~2017-11-02] VITALS: Ht 157.5 cm; Wt 73.9 kg
[~2017-11-02 19:17] MED LIST changes: +COUMADIN4 MG PO; +DILTIAZEM HCL180 MG PO; +METOPROLOL SUC200 M2 PO; +VANCOMYCIN PER PHARM MC
[2017-11-02 19:27] VITALS: Ht 157.5 cm; Wt 73.9 kg
[2017-11-02 19:59] LABS: BASOPHIL % 0.4 % (0-2); PLATELET COUNT 140 x10^3mcL (130-400)
[2017-11-02 20:06] LABS: RED CELL DISTRIBUTION WIDTH 15.1 % (11.5-14.5)
[2017-11-02 20:12] LABS: CALCIUM 8.5 mg/dL (8.5-10.1); CARBON DIOXIDE 35.2 mmol/L (21-32); CHLORIDE SERUM 98 mmol/L (98-107); CREATININE SERUM 1.2 mg/dL (0.6-1.0); GLUCOSE SERUM 98 mg/dL (74-106); POTASSIUM SERUM 3.2 mmol/L (3.5-5.1); SODIUM SERUM 138 mmol/L (136-145)
[2017-11-02 20:17] LABS: ALBUMIN 3.6 g/dL (3.4-5.0); ALKALINE PHOSPHATASE 86 U/L (46-116); AST/SGOT 20 U/L (15-37); BILIRUBIN TOTAL 1.16 mg/dL (0.20-1.00)
[2017-11-02 20:30] LABS: ALT/SGPT 18 U/L (14-59)
[2017-11-02] MEDS ORDERED: COUMADIN3 MG PO (21:17)
[2017-11-02 22:28] VITALS: BP 142/74
[2017-11-02 23:55] VITALS: BP 142/74
[2017-11-03 05:21] VITALS: BP 119/68
[2017-11-03 09:11] VITALS: BP 102/62
[2017-11-03 14:26] VITALS: BP 105/66
[2017-11-03 17:40] VITALS: BP 116/59
[2017-11-03 18:37] LABS: microscopic required? NO
[2017-11-03 18:59] LABS: urine erythrocyte NEGATIVE (NEGATIVE)
[2017-11-03 20:45] VITALS: BP 113/58
[2017-11-04 05:17] VITALS: BP 116/75
[2017-11-04 06:56] LABS: BASOPHIL % 0.5 % (0-2)
[2017-11-04 07:01] LABS: ALKALINE PHOSPHATASE 65 U/L (46-116); ALT/SGPT 14 U/L (14-59); AST/SGOT 13 U/L (15-37); BILIRUBIN TOTAL 0.95 mg/dL (0.20-1.00); CALCIUM 8.6 mg/dL (8.5-10.1); CARBON DIOXIDE 34.3 mmol/L (21-32); CHLORIDE SERUM 99 mmol/L (98-107); CREATININE SERUM 1.5 mg/dL (0.6-1.0); GLUCOSE SERUM 101 mg/dL (74-106); PHOSPHOROUS 3.5 mg/dL (2.5-4.9); POTASSIUM SERUM 3.8 mmol/L (3.5-5.1); SODIUM SERUM 138 mmol/L (136-145)
[2017-11-04 07:05] LABS: PLATELET COUNT 113 x10^3mcL (130-400); RED CELL DISTRIBUTION WIDTH 15.4 % (11.5-14.5)
[2017-11-04 07:29] LABS: ALBUMIN 2.8 g/dL (3.4-5.0); TOTAL PROTEIN, SERUM 5.9 g/dL (6.4-8.2)
[2017-11-04 08:34] VITALS: BP 112/69
[2017-11-04 12:19] VITALS: BP 117/72
[2017-11-04 13:58] VITALS: BP 117/72
[2017-11-04 16:30] VITALS: BP 108/67
== END 2017-11-04 17:14 | disposition home or self-care (01) | DRG 871 ==
LOC: ED 19:17 → DU 21:03
PROVIDERS: Emergency Medicine; Internal Medicine Pulmonary Disease
DX: A41.9 Sepsis, unspecified organism (principal); J18.9 Pneumonia, unspecified organism; I50.43 Acute on chronic combined systolic (congestive) and diastolic (congestive) heart failure; D68.9 Coagulation defect, unspecified; I11.0 Hypertensive heart disease with heart failure; R09.02 Hypoxemia; I48.91 Unspecified atrial fibrillation; I87.2 Venous insufficiency (chronic) (peripheral); E87.6 Hypokalemia; F41.9 Anxiety disorder, unspecified; Z68.28 Body mass index [BMI] 28.0-28.9, adult; Z99.81 Dependence on supplemental oxygen; Z79.01 Long term (current) use of anticoagulants; Z86.711 Personal history of pulmonary embolism
CPT/HCPCS: 36600; 83880; J1940; J1956; J7030; J7620; Q0092

== ENCOUNTER 2018-09-15 06:07 | Inpatient (IN) | payer OTHER ==
[~2018-09-15] VITALS: Ht 157.5 cm; Wt 83.0 kg
[~2018-09-15 06:07] MED LIST changes: +COUMADIN3 MG PO
[2018-09-15 06:12] VITALS: Ht 157.5 cm; Wt 83.0 kg
--- NOTE | 2018-09-15 06:29 | NUR ---
PT BIB AMBULANCE FOR C/O SOB. PT STATES SHE HAS BEEN FEELING SOB FOR SEVERAL DAYS. PT STATES SHE USES OXYGEN AT HOME HOWEVER COULD NOT FIND THE CANNULAS SHE USES FOR THE OXYGEN AT HOME. UPON ARRIVAL OF THE PARAMEDICS PT O2 SAT WAS IN THE 60S ON RA. PARAMEDICS GAVE 1 BREATHING TX OF ALBUTEROL AND ATROVENT EN ROUTE ANDHER 02 SATURATION WHILE ON THAT IMPROVED INTO THE 90S. PT HAS HX OF AFIB AND CHF. PT STATES THAT SHE IS COMPLIANT WITH HER MEDICATIONS. PT IS AXO X4. PT IS SPEAKING IN CLEAR AND FULL SENTENCES. PT HAS AUDIBLE CRACKLES IN UPPER LOBES AND DIMINSHED BREATHE SOUNDS IN LOWER LOBES. PT STATES THAT HER LEGS SEEM A LITTLE MORE SWOLLEN THAN NORMAL, - EDEMA. PT HAD LABORED BREATHING UPON ARRIVAL, HOWEVER, DECREASED WOB WITH THE NON REBREATHER AT 10L. SON AT BEDSIDE. PT CONNECTED TO FULL CM. O2, AND BP MONITORS. MD SALOMON AT BEDSIDE FOR MSE. PT CHEST RISE IS EQUAL AND DIAPHRAGMATIC. NAD AT THIS TIME.
[2018-09-15] MEDS ORDERED: METOPROLOL SUC200 M2 PO (06:41)
[2018-09-15] MEDS ORDERED: MASON NATURAL1000 IU PO (06:42)
[2018-09-15] MEDS ORDERED: DILTIAZEM HCL240 MG PO (06:42)
[2018-09-15] MEDS ORDERED: COUMADIN2 MG PO (06:42)
--- NOTE | 2018-09-15 06:44 | NUR ---
LAB AND RT MIGUEL AT BEDSIDE FOR BLOOD DRAW AND ABG
--- NOTE | 2018-09-15 06:56 | NUR ---
REPORT GIVEN TO HENRY LANCE RN
--- NOTE | 2018-09-15 06:56 | NUR ---
X RAY AT BEDSIDE
[2018-09-15 07:15] LABS: BASOPHIL % 0.8 % (0-2); PLATELET COUNT 147 x10^3mcL (130-400)
[2018-09-15 07:20] LABS: CALCIUM 9.8 mg/dL (8.5-10.1); CARBON DIOXIDE 34.2 mmol/L (21-32); CHLORIDE SERUM 102 mmol/L (98-107); CREATININE SERUM 1.2 mg/dL (0.6-1.0); GLUCOSE SERUM 111 mg/dL (74-106); POTASSIUM SERUM 3.5 mmol/L (3.5-5.1); SODIUM SERUM 144 mmol/L (136-145)
[2018-09-15 07:24] LABS: ALBUMIN 3.5 g/dL (3.4-5.0); ALKALINE PHOSPHATASE 97 U/L (46-116); ALT/SGPT 24 U/L (14-59); AST/SGOT 13 U/L (15-37); BILIRUBIN TOTAL 1.48 mg/dL (0.20-1.00); TOTAL PROTEIN, SERUM 6.9 g/dL (6.4-8.2)
[2018-09-15 07:39] LABS: RED CELL DISTRIBUTION WIDTH 15.9 % (11.5-14.5)
--- NOTE | 2018-09-15 08:57 | NUR ---
ON GURANDRES IN POSITION OF COMFORT WITH CALL LIGHT IN REACH; STS SHE IS UNABLE TO GIVE URINE AT THIS TIME; CONNECTED TO FULL TRANSMISSION ASSEMBLER AND OXYGENA THIS TIME.
--- NOTE | 2018-09-15 09:12 | NUR ---
PROVIDED WITH WATER; OK'D WITH
[2018-09-15 09:35] VITALS: BP 135/101
--- NOTE | 2018-09-15 10:10 | NUR ---
ASSISTED PT TO BATHROOM WITHOUT INCIDENCE. RETURNED ON GURNEY WITH FULL TAX TECHNICIAN AND O2 IN PLACE. REMINDED PT TO USE CALL LIGHT THAT IS ON GURNEY WITH PT.
--- NOTE | 2018-09-15 10:35 | NUR ---
CALLED REPORT TO YANG PERSON IN TELE TO ASSUME CARE OF PT
[2018-09-15 11:03] VITALS: BP 143/91
[2018-09-15 11:30] LABS: microscopic required? YES; urine erythrocyte TRACE (NEGATIVE)
--- NOTE | 2018-09-15 11:37 | NUR ---
ADMITTED FR. ER VIA GUERNEY ACCOMPANIED BY ER NURSE.C/O SOB X 3 DAYS AND HTN. AAO X4.DENIES ANY PAIN/DISCOMFORT.LUNGS CLEAR. ON AFIB ON MONITOR # 12.HR=80.BLE WITH DEPENDENT EDEMA.ADMISSION ASSESSMENT AND HX COMPLETE.CALL LIGHT WITHIN REACH.INSTRUCTED TO CALL FOR ANY PAIN/DISCOMFORT.WILL CONTINUE TO MONITOR PT.
--- NOTE | 2018-09-15 15:00 | NUR ---
PT COMFORTABLE NO COMPLAINTS.
[2018-09-15 16:28] VITALS: BP 148/96
--- NOTE | 2018-09-15 19:10 | NUR ---
NO SIGNIFICANT CHANGE NOTED.ENDORSE TO YANG KEN.
--- NOTE | 2018-09-15 19:30 | NUR ---
PT IS A/O x4. [place]. ON TELE #12, A-FIB. DENIES ANY CHEST PAIN OR PRESSURE. PULSES ARE PRESENT. BLE EDEMA NOTED. LUNGS DIMINISHED AT JENNY BASES BUT CLEAR OTHERWISE. ON 3L NC, DENIES ANY SOB. EQUAL CHEST RISE AND FALL. NO SIGN OF RESP DISTRESS. BOWEL SOUNDS PRESENT x4. DENIES ANY ABD PAIN OR DISTRESS. SKIN WARM AND INTACT. DENIES ANY PAIN AT THIS TIME. SALINE LOCKED ON RAC. SITE CLEAN, PATENT, AND INTACT. BED IS AT LOWEST SETTING. CALL LIGHT WITHIN REACH. WILL CONTINUE TO MONTIOR.
[2018-09-15 20:55] VITALS: BP 107/74
--- NOTE | 2018-09-16 01:45 | NUR ---
PT IS RESTING IN BED WITH BOTH EYES CLOSED. ON BIPAP. PT IN NO DISTRESS. BREATHING EVEN AND UNLABORED. BED IS AT LOWEST SETTING. CALL LIGHT WITHIN REACH. WILL CONTINUE TO MONTIOR.
[2018-09-16 06:04] VITALS: BP 139/81
[2018-09-16 06:04] LABS: PLATELET COUNT 137 x10^3mcL (130-400)
[2018-09-16 06:24] LABS: ALKALINE PHOSPHATASE 84 U/L (46-116); ALT/SGPT 21 U/L (14-59); AST/SGOT 8 U/L (15-37); BILIRUBIN TOTAL 1.16 mg/dL (0.20-1.00); CALCIUM 9.2 mg/dL (8.5-10.1); CARBON DIOXIDE 35.4 mmol/L (21-32); CHLORIDE SERUM 104 mmol/L (98-107); CREATININE SERUM 1.4 mg/dL (0.6-1.0); GLUCOSE SERUM 171 mg/dL (74-106); MAGNESIUM 2.1 mg/dL (1.8-2.4); POTASSIUM SERUM 4.2 mmol/L (3.5-5.1); SODIUM SERUM 147 mmol/L (136-145); TOTAL PROTEIN, SERUM 6.5 g/dL (6.4-8.2)
[2018-09-16 06:42] LABS: BASOPHIL % 0 % (0-2); RED CELL DISTRIBUTION WIDTH 16.3 % (11.5-14.5)
[2018-09-16 06:43] LABS: ALBUMIN 3.1 g/dL (3.4-5.0)
--- NOTE | 2018-09-16 06:52 | NUR ---
PT RESTING IN BED. ON BIPAP ALL NIGHT. PT TOLERATING WELL. NO ACUTE EVENT OCCURED DURING SHIFT. PT WISHED TO BE PLACED BACK ON BIPAP TO REST A BIT LONGER. BED IS AT LOWEST SETTTING. CALL LIGHT WITHIN REACH. WILL ENDORSE TO AM NURSE.
--- NOTE | 2018-09-16 07:40 | NUR ---
PT IN BED, VERBAL, AXOX4, IN NO ACUTE DISTRESS, NO FACIAL DROOP/SLURRED SPEECH NOTED, DENIES PAIN/DISCOMFORT, DENIES N/V/MAURICE, DENIES CP/PRESSURE, RESP EVEN AND NON-LABORED, CHEST RISE SYMMETRICALLY, MEDSURG, ABD FLAT AND NON-TENDER TO TOUCH, BS ACTIVE X 4, AMBULATORY, ABLE TO MOVE ALL EXTREMITIES, ASSITED PT TO BATHROOM, BACK TO BED, CONTINENT, EDEMA 1+ TO BLE, CAP REFIL < 3S, PALP PULSES, SKIN W/D/I, ALL NEEDS MET, BED AT LOW POSITION, CALL LIGHT IN REACH, RAILS X 2, CONTINUE TO MONITOR
[2018-09-16 08:58] VITALS: BP 138/80
--- NOTE | 2018-09-16 09:15 | NUR ---
AM MED GIVEN PER MD ORDER, TAKEN WELL, NO ADVERSE S/E NOTED, ASSITED TO BATHROOM, BACK TO BED, SAFETY PROTOCOL FOLLOWED, ALL NEEDS MET, CONTINUE TO MONITOR
--- NOTE | 2018-09-16 12:00 | NUR ---
PT IN BED, REQUESTED EXTRA WATER, PT TEACHING ABOUT FLUID RESTRICTION DURING HOSPITALIZATION GIVEN PER PT CONDITION AND PER MD ORDER, VERBALLY UNDESTANDING, ALL NEEDS MET, FAMILY AT BEDSIDE, SAFETY PROTOCOL FOLLOWED, CONTINUE TO MONITOR
[2018-09-16 13:05] VITALS: BP 142/91
--- NOTE | 2018-09-16 14:43 | NUR ---
PT SLEEPING IN BED, IN NO ACUTE DISTRESS, SON AT BEDSIDE, ALL NEEDS MET, SAFETY PRECAUTION FOLLOWED, CONTINUE TO MONITOR
--- NOTE | 2018-09-16 14:49 | NUR ---
ECHO PENDING, PATIENT STATES SHE HAD ECHO [address]ES [address] BUSH A OUTPATIENT ON A REGULAR. WANTS US TO REQUEST RECORDS.
--- NOTE | 2018-09-16 15:12 | NUR ---
I HAVE REVIEWED THE DATA COLLECTION BY YANG HESS (NAME): JONELLE EVANS ENTERED ON (DATE/TIME):09/16/18 @ 2733 I CONCUR WITH THE DATA AND ANY EXCEPTIONS OR COMMENTS ARE LISTED BELOW:
[2018-09-16 17:05] VITALS: BP 136/86
--- NOTE | 2018-09-16 17:16 | NUR ---
PT IN BEST, RESTING, IN NO ACUTE DISTRESS, DENIES CP/PRESSURE, DENIES PAIN/N/V, CALL LIGHT IN REACH, BED AT LOW POSITION, RAILS X2, CONTINUE TO MONITOR
--- NOTE | 2018-09-16 18:46 | NUR ---
PT RESTIGN IN BED, IN NO ACUTE DISTRESS, VERBAL, PERRLA, REPORT NO PAIN/N/V, DENIES CP/PRESSURE, DENIES N/V, SPEECH CLEAR AND NO FACIAL DROOP NOTED, REST EVEN AND NON-LABORED, CHEST RISE SYMMETRICALLY, AXOX4, ABLE TO MOVE ALL EXTREMITIES, AMBULATORY, CONTINENT, ASSITED TO BATHROOM, BACK TO BED, ALL NEEDS MET, BED AT LOW POSITION, CALL LIGHT IN REACH, RAILS X 2, WILL ENDORSE TO ONCOMING RN
--- NOTE | 2018-09-16 20:00 | NUR ---
PT A/A/O X4. DENIES DIZZINESS AND HEADACHE. BREATH SOUNDS DIMINISHED JENNY BASES. BREATHING EVEN AND UNLABORED ON 3L NC. DENIES CHEST PAIN AND PRESSURE. BOWEL SOUNDS ACTIVE. NO C/O N/V AND ABD PAIN. EDEMA NOTED ON BLE. IV SALINE LOCK INTACT ON THE RAC. MADE PT COMFORTABLE. PLACED CALL LIGHT WITH IN REACH. WILL CONTINUE TO MONITOR.
[2018-09-16 21:14] VITALS: BP 113/64
--- NOTE | 2018-09-17 01:09 | NUR ---
PT RESTING WITH EYES CLOSED. PT ON BI PAP. TOLERATING IT WELL. WILL CONTINUE TO MONITOR.
--- NOTE | 2018-09-17 06:19 | NUR ---
PT RESTING WITH EYES CLOSED WITH BI PAP ON. EASILY AROUSABLE WITH VERBAL STIMULI. NO SIGNIFICANT CHANGES NOTED. MADE PT COMFORTABLE. WILL ENDORSE TO THE AM NURSE ACCORDINGLY.
[2018-09-17 06:25] VITALS: BP 113/74
[2018-09-17 06:26] LABS: PLATELET COUNT 140 x10^3mcL (130-400)
[2018-09-17 06:35] LABS: BASOPHIL % 0 % (0-2); RED CELL DISTRIBUTION WIDTH 15.7 % (11.5-14.5)
[2018-09-17 06:39] LABS: ALBUMIN 3.8 g/dL (3.4-5.0); ALKALINE PHOSPHATASE 66 U/L (46-116); ALT/SGPT 22 U/L (14-59); AST/SGOT 12 U/L (15-37); BILIRUBIN TOTAL 1.2 mg/dL (0.20-1.00); CALCIUM 8.9 mg/dL (8.5-10.1); CARBON DIOXIDE 37.2 mmol/L (21-32); CHLORIDE SERUM 105 mmol/L (98-107); CREATININE SERUM 1.4 mg/dL (0.6-1.0); GLUCOSE SERUM 152 mg/dL (74-106); MAGNESIUM 2.1 mg/dL (1.8-2.4); POTASSIUM SERUM 3.9 mmol/L (3.5-5.1); SODIUM SERUM 147 mmol/L (136-145); TOTAL PROTEIN, SERUM 6.5 g/dL (6.4-8.2)
--- NOTE | 2018-09-17 07:30 | NUR ---
RECEIVED PATIENT IN BED WITH BIPAP ON. ALERT AND ORIENTED. RESP EVEN AND UNLABORED, LUNGS DIMINISHED BLL. TELE 12 A-FIB. DEPENDENT EDEMA NOTED BLE. GENERALIZED WEAKNESS NOTED. H RT A/C. NO ACUTE DISTRESS NOTED, NO C/O PAIN OR DISCOMFORT AT THIS TIME.
[2018-09-17 09:07] VITALS: BP 140/65
[2018-09-17 13:08] VITALS: BP 132/76
--- NOTE | 2018-09-17 13:28 | NUR ---
PATIENT'S PLAN OF CARE WAS DISCUSSED AND REVIEWED WITH CONTRACTS REPRESENTATIVE:GLORIA ALICEA. I HAVE REVIEWED THE DATA COLLECTION BY CONTRACTS REPRESENTATIVE (NAME):GLORIA ALICEA. ENTERED ON (DATE/TIME):09/17/18. I CONCUR WITH THE DATA AND ANY EXCEPTIONS OR COMMENTS ARE LISTED BELOW:
--- NOTE | 2018-09-17 14:49 | NUR ---
PATIENT REMAINS SITTING UP IN BED WITH SON AT BEDSIDE. NO CHANGE IN CONDITION NOTED. REMAINS ON O2 AT 3L VIA N/C. WILL CONTINUE TO MONITOR.
[2018-09-17 16:40] VITALS: BP 129/80
--- NOTE | 2018-09-17 18:01 | NUR ---
PATIENT IS SITTING UP ON THE SIDE OF THE BED EATING DINNER TRAY. O2 ON AT 3L VIA N/C. DENIES ANY PAIN OR DISCOMFORT. AMBULATES TO THE BATHROOM PRN. SON HAS BEEN INTO VISIT. NO ACUTE DISTRESS NOTED. R.TL PROTOCOL IN PLACE.
--- NOTE | 2018-09-17 19:20 | NUR ---
CARE ASSUMED FROM OUTGOING MINE GEOLOGIST. PT RESTING COMFORTABLY IN BED READING A BOOK. NO ACUTE DISTRESS NOTED. EVEN AND UNLABORED RESPIRATIONS ON 3LNC. NO C/O SOB AT THIS TIME. ON TELE #12 READING AFIB AT 86BPM. IVL INTACT. ON FLUID RESTRICTION 1.5L/24HRS. BED IN LOWEST POSTION. SIDE RAILS UPX2. CALL LIGHT WITHIN REACH. WILL CONTINUE TO MONITOR.
[2018-09-17 20:27] VITALS: BP 139/73
--- NOTE | 2018-09-18 02:05 | NUR ---
RT AT BEDSIDE, PLACED ON BIPAP. EVEN AND UNLABORED RESPIRATIONS NOTED. PT RESTING COMFORTABLY IN BED. NO ACUTE DISTRESS NOTED. ON TELE #12 READING AFIB AT 80BPM. IVL PATENT AND INTACT. BED IN LOWEST POSITION. SIDE RAILS UPX2. CALL LIGHT WITHIN REACH. WILL CONTINUE TO MONITOR.
[2018-09-18 05:29] VITALS: BP 137/82
[2018-09-18 06:29] LABS: PLATELET COUNT 134 x10^3mcL (130-400)
[2018-09-18 06:39] LABS: ALBUMIN 3.9 g/dL (3.4-5.0); ALKALINE PHOSPHATASE 56 U/L (46-116); ALT/SGPT 22 U/L (14-59); AST/SGOT 11 U/L (15-37); BILIRUBIN TOTAL 1.2 mg/dL (0.20-1.00); CALCIUM 8.7 mg/dL (8.5-10.1); CARBON DIOXIDE 39.9 mmol/L (21-32); CHLORIDE SERUM 104 mmol/L (98-107); CREATININE SERUM 1.3 mg/dL (0.6-1.0); GLUCOSE SERUM 152 mg/dL (74-106); POTASSIUM SERUM 3.8 mmol/L (3.5-5.1); SODIUM SERUM 147 mmol/L (136-145); TOTAL PROTEIN, SERUM 6.4 g/dL (6.4-8.2)
--- NOTE | 2018-09-18 06:50 | NUR ---
PT SLEPT COMFORTABLY IN INTERVALS THROUGHOUT THE NIGHT. NO ACUTE CHANGES NOTED. EVEN AND UNLABORED RESPIRATIONS ON BIPAP. ON TELE #12 AFIB AT 78 BPM. IVL PATENT AND INTACT. ALL NEEDS TENDED TO AND MET. ALL SCHEDULED MEDICATIONS GIVEN. FLUID RESTRICTION IN PLACE. STRICT I&O TAKEN. BED IN LOWEST POSITION. SIDE RAILS UPX2. CALL LIGHT WITHIN REACH. WILL ENDORSE TO ONCOMING SHIFT.
--- NOTE | 2018-09-18 07:21 | NUR ---
RECEIVED ASLEEP BUT AROUSABLE. ON BIPAP AND TOLERATING WELL. NO ACUTE RESP. DISTRESS NOTED. NO C/O PAIN OR DISCOMFORT. CALL LIGHT WITHIN REACH. WILL CONTINUE WITH PLAN OF CARE.
[2018-09-18 07:31] LABS: RED CELL DISTRIBUTION WIDTH 16.7 % (11.5-14.5)
[2018-09-18 07:40] LABS: BASOPHIL % 0 % (0-2)
[2018-09-18 08:12] VITALS: BP 150/93
--- NOTE | 2018-09-18 12:14 | NUR ---
SITTING AT THE EDGE OF THE BED IN NO DISTRESS. DENIES PAIN OR DISCOMFORT.
[2018-09-18 13:03] VITALS: BP 147/90
--- NOTE | 2018-09-18 15:51 | NUR ---
PT WILL BE DC'D HOME THIS PM. DC INSTRUCTIONS REVIEWED WITH PT,VERBALIZED UNDERSTANDING. HL REMOVED AND SITE/CATH INTACT.PER PT, SON WILL PICK HER UP AFTER DINNER. PT IN NO DISTRESS. AWAKE AND ALERT. DENIES ANY DISCOMFORT AT THIS TIME. CALL LIGHT WITHIN REACH. WILL CONTINUE TO MONITOR.
[2018-09-18 17:02] VITALS: BP 143/92
--- NOTE | 2018-09-18 18:46 | NUR ---
PT STILL WAIRING FOR RIDE HOME. FAMILY WILL PICK HER UP AROUND 9PM. CHARGE NURSE AWARE. PT REMAINS IN NO DISTRESS. AWAKE AND ALERT. NO C/O PAIN OR DISCOMFORT AT THIS TIME. CALL LIGHT WITHIN REACH. WILL BE ENDORSED TO INCOMING SHIFT.
--- NOTE | 2018-09-18 19:05 | NUR ---
RECEIVED PT FROM PREVIOUS SHIFT NURSE. AOX4. DENIES MAURICE/DIZZINESS MED SURG PT. DENIES CP/PRESSURE. DENIES SOB/DIFFICULTY BREATHING, ON 3L NC. NO IV ACCESS AT THIS TIME. PT DISCHARGED, AWAITING RIDE HOME FROM SON. WILL CONTINUE TO MONITOR.
[2018-09-18 19:53] VITALS: BP 122/73
--- NOTE | 2018-09-18 21:20 | NUR ---
PT ALREADY SIGNED DC PAPERWORK. PT SON HERE TO PRINCIPAL MILITARY ANALYST PT. PT IN NO ACUTE DISTRESS. WRIST BAND REMOVED. WHEELED DOWN BY LEARNING AND DEVELOPMENT COORDINATOR IN WHEELCHAIR WITH PT BELONGINGS.
--- NOTE | 2018-09-19 07:35 | NUR ---
ECHOCARDIOGRAM NOT DONE-DISCHARGED
== END 2018-09-18 21:21 | disposition home health service (06) | DRG 291 ==
LOC: ED 06:07 → DU 09:16
PROVIDERS: Emergency Medicine; ADMIT Internal Medicine Pulmonary Disease
DX: I11.0 Hypertensive heart disease with heart failure (principal); J96.01 Acute respiratory failure with hypoxia; J96.11 Chronic respiratory failure with hypoxia; I50.23 Acute on chronic systolic (congestive) heart failure; J44.9 Chronic obstructive pulmonary disease, unspecified; I48.91 Unspecified atrial fibrillation; F41.9 Anxiety disorder, unspecified; E78.5 Hyperlipidemia, unspecified; Z68.29 Body mass index [BMI] 29.0-29.9, adult; Z87.891 Personal history of nicotine dependence; Z86.711 Personal history of pulmonary embolism; Z79.01 Long term (current) use of anticoagulants; Z99.81 Dependence on supplemental oxygen
CPT/HCPCS: 36600; 83880; G0378; J1940; J2920; J3490; J7050; J7613; J7620; P9047

== ENCOUNTER 2019-01-18 19:41 | Inpatient (IN) | payer OTHER ==
[~2019-01-18] VITALS: Ht 157.5 cm; Wt 79.0 kg
[~2019-01-18 19:41] MED LIST changes: +DILTIAZEM HCL240 MG PO
[2019-01-18 20:46] LABS: ALBUMIN 3.8 g/dL (3.4-5.0); ALKALINE PHOSPHATASE 104 U/L (46-116); ALT/SGPT 16 U/L (14-59); AST/SGOT 18 U/L (15-37); BILIRUBIN TOTAL 1.4 mg/dL (0.20-1.00); CALCIUM 8.2 mg/dL (8.5-10.1); CARBON DIOXIDE 33.4 mmol/L (21-32); CHLORIDE SERUM 98 mmol/L (98-107); CREATININE SERUM 1.4 mg/dL (0.6-1.0); GLUCOSE SERUM 144 mg/dL (74-106); POTASSIUM SERUM 3.6 mmol/L (3.5-5.1); SODIUM SERUM 138 mmol/L (136-145); TOTAL PROTEIN, SERUM 7.4 g/dL (6.4-8.2)
[2019-01-18 20:56] LABS: BASOPHIL % 0.7 % (0-2); PLATELET COUNT 149 x10^3mcL (130-400)
[2019-01-18 20:59] LABS: RED CELL DISTRIBUTION WIDTH 15.4 % (11.5-14.5)
[2019-01-18 23:04] VITALS: BP 146/95
[2019-01-18 23:25] VITALS: BP 146/95
[2019-01-19 05:59] VITALS: BP 131/78
[2019-01-19 08:12] LABS: UA SPECIFIC GRAVITY 1.015 (1.005-1.035); microscopic required? YES; urine erythrocyte NEGATIVE (NEGATIVE)
[2019-01-19 09:42] VITALS: BP 137/83
[2019-01-19 11:08] VITALS: BP 138/89
[2019-01-19 17:46] VITALS: BP 131/90
[2019-01-19 20:46] VITALS: BP 144/82
[2019-01-20 05:01] VITALS: BP 149/92
[2019-01-20 07:03] LABS: ALKALINE PHOSPHATASE 84 U/L (46-116); ALT/SGPT 14 U/L (14-59); AST/SGOT 12 U/L (15-37); BILIRUBIN DIRECT 0.33 mg/dL (0.0-0.2); BILIRUBIN TOTAL 1.3 mg/dL (0.20-1.00); CALCIUM 8.7 mg/dL (8.5-10.1); CARBON DIOXIDE 38.4 mmol/L (21-32); CHLORIDE SERUM 103 mmol/L (98-107); CREATININE SERUM 1.1 mg/dL (0.6-1.0); GLUCOSE SERUM 146 mg/dL (74-106); POTASSIUM SERUM 4.1 mmol/L (3.5-5.1); SODIUM SERUM 146 mmol/L (136-145); TOTAL PROTEIN, SERUM 6.3 g/dL (6.4-8.2)
[2019-01-20 07:22] LABS: BASOPHIL % 0.1 % (0-2); PLATELET COUNT 144 x10^3mcL (130-400)
[2019-01-20 07:23] LABS: ALBUMIN 3.2 g/dL (3.4-5.0); RED CELL DISTRIBUTION WIDTH 17.1 % (11.5-14.5)
[2019-01-20 08:41] VITALS: BP 141/98
[2019-01-20 08:49] VITALS: Ht 157.5 cm; Wt 79.0 kg
[2019-01-20 10:10] VITALS: BP 122/81
[2019-01-20 10:30] VITALS: BP 122/81
[2019-01-20 15:00] VITALS: BP 130/80
[2019-01-20 20:50] VITALS: BP 142/81
[2019-01-21 05:55] VITALS: BP 111/68
[2019-01-21 06:45] LABS: CALCIUM 8.5 mg/dL (8.5-10.1); CARBON DIOXIDE 38.6 mmol/L (21-32); CHLORIDE SERUM 103 mmol/L (98-107); CREATININE SERUM 1.2 mg/dL (0.6-1.0); GLUCOSE SERUM 151 mg/dL (74-106); POTASSIUM SERUM 3.7 mmol/L (3.5-5.1); SODIUM SERUM 146 mmol/L (136-145)
[2019-01-21 08:13] VITALS: BP 134/76
[2019-01-21] MEDS ORDERED: ZITHROMAX1 GM/Packe PO (10:13)
[2019-01-21] MEDS ORDERED: DELTASONE20 MG GT (10:13)
[2019-01-21 11:13] VITALS: BP 134/76
[2019-01-21 11:38] VITALS: BP 117/73
[2019-01-21 16:03] VITALS: BP 114/71
[2019-01-21 20:47] VITALS: BP 125/78
[2019-01-22 05:20] VITALS: BP 131/98
[2019-01-22 08:14] VITALS: BP 143/99
[2019-01-22 11:40] VITALS: BP 120/80
[2019-01-22 16:48] VITALS: BP 133/73
[2019-01-22 21:38] VITALS: BP 126/81
[2019-01-23 06:28] VITALS: BP 138/83
[2019-01-23 08:25] VITALS: BP 139/85
[2019-01-23 12:08] VITALS: BP 145/92
[2019-01-23 15:59] VITALS: BP 121/84
== END 2019-01-23 18:54 | disposition home or self-care (01) | DRG 291 ==
LOC: ED 19:41 → DU 22:17
PROVIDERS: Emergency Medicine; Internal Medicine Cardiovascular Disease; ADMIT Internal Medicine
DX: I11.0 Hypertensive heart disease with heart failure (principal); J96.22 Acute and chronic respiratory failure with hypercapnia; J96.21 Acute and chronic respiratory failure with hypoxia; J44.1 Chronic obstructive pulmonary disease with (acute) exacerbation; D68.69 Other thrombophilia; I50.33 Acute on chronic diastolic (congestive) heart failure; I48.91 Unspecified atrial fibrillation; I25.10 Atherosclerotic heart disease of native coronary artery without angina pectoris; E78.5 Hyperlipidemia, unspecified; F41.8 Other specified anxiety disorders; Z86.711 Personal history of pulmonary embolism; Z79.01 Long term (current) use of anticoagulants; Z95.828 Presence of other vascular implants and grafts; Z87.891 Personal history of nicotine dependence; Z68.34 Body mass index [BMI] 34.0-34.9, adult
CPT/HCPCS: 36600; 83880; 97116-GP; 97530-GP; G0378; J0456; J1940; J2920; J7040; J7613; J7620; J7644; Q0092

== ENCOUNTER 2019-04-23 13:52 | Inpatient (IN) | payer OTHER ==
[~2019-04-23] VITALS: Ht 157.5 cm; Wt 78.9 kg
[~2019-04-23 13:52] MED LIST changes: +DELTASONE20 MG GT; +ZITHROMAX1 GM/Packe PO
[2019-04-23 13:58] VITALS: Ht 157.5 cm; Wt 78.9 kg
[2019-04-23 15:11] LABS: BASOPHIL % 0.3 % (0-2); PLATELET COUNT 132 x10^3mcL (130-400)
[2019-04-23 15:18] LABS: RED CELL DISTRIBUTION WIDTH 17.8 % (11.5-14.5)
[2019-04-23 15:32] LABS: CHLORIDE SERUM 98 mmol/L (98-107); GLUCOSE SERUM 88 mg/dL (74-106); POTASSIUM SERUM 3.2 mmol/L (3.5-5.1); SODIUM SERUM 145 mmol/L (136-145)
[2019-04-23 15:39] LABS: CARBON DIOXIDE 44.4 mmol/L (21-32)
[2019-04-23 21:05] VITALS: BP 133/94
[2019-04-23 22:54] VITALS: BP 137/102
[2019-04-23 23:17] VITALS: BP 133/94
[2019-04-24 05:20] VITALS: BP 151/99
[2019-04-24 06:32] LABS: PLATELET COUNT 130 x10^3mcL (130-400)
[2019-04-24 07:11] LABS: ALKALINE PHOSPHATASE 86 U/L (46-116); ALT/SGPT 14 U/L (14-59); AST/SGOT 19 U/L (15-37); BILIRUBIN TOTAL 1.25 mg/dL (0.20-1.00); CALCIUM 8.9 mg/dL (8.5-10.1); CHLORIDE SERUM 101 mmol/L (98-107); CREATININE SERUM 1.1 mg/dL (0.6-1.0); GLUCOSE SERUM 149 mg/dL (74-106); POTASSIUM SERUM 4.7 mmol/L (3.5-5.1); SODIUM SERUM 146 mmol/L (136-145); TOTAL PROTEIN, SERUM 6.2 g/dL (6.4-8.2)
[2019-04-24 07:23] LABS: ALBUMIN 3.1 g/dL (3.4-5.0)
[2019-04-24 07:55] LABS: RED CELL DISTRIBUTION WIDTH 17.4 % (11.5-14.5)
[2019-04-24 08:29] LABS: CARBON DIOXIDE 40.7 mmol/L (21-32)
[2019-04-24 08:58] VITALS: BP 136/80
[2019-04-24 12:03] VITALS: BP 138/87
[2019-04-24] MEDS ORDERED: LEVAQUIN750 MG PO (12:16)
[2019-04-24] MEDS ORDERED: LASIX40 MG PO (12:16)
[2019-04-24 13:27] LABS: BAND NEUTROPHIL 3 % (0-10); BASOPHIL 0 % (0-2); MONOCYTE 5 % (0-7); SEGMENTED NEUTROPHILS 39 % (37-75); rbc morphology (normal/abnorm) ABNORMAL (NORMAL)
[2019-04-24 13:28] LABS: PLATELET MORPHOLOGY PLATELETS DECREASED
[2019-04-24 16:01] VITALS: BP 128/88
[2019-04-24 18:53] VITALS: BP 129/87
== END 2019-04-24 21:25 | disposition home or self-care (01) | DRG 291 ==
LOC: ED 13:52 → DU 16:18
PROVIDERS: Emergency Medicine; ADMIT Hospitalist
DX: I11.0 Hypertensive heart disease with heart failure (principal); J96.21 Acute and chronic respiratory failure with hypoxia; J44.1 Chronic obstructive pulmonary disease with (acute) exacerbation; I48.20 Chronic atrial fibrillation, unspecified; I27.20 Pulmonary hypertension, unspecified; E87.6 Hypokalemia; J11.1 Influenza due to unidentified influenza virus with other respiratory manifestations; I50.9 Heart failure, unspecified; Z86.711 Personal history of pulmonary embolism; Z86.718 Personal history of other venous thrombosis and embolism
CPT/HCPCS: 36600; 83880; 87804; G0378; J0456; J0696; J1940; J2930; J7050; J7620